=== PATIENT | male | born 1965 | race Caucasian/White ===

== ENCOUNTER → 2021-01-18 | Outpatient (CLI) | payer BC ==
[~2021-01-18] MED LIST: ADVIL COLD & S1 EACH PO; PANTOPRAZOLE SO40 MG PO; PEPCID AC10 MG PO
== END ==
LOC: RAD 15:40
PROVIDERS: ATTEND Internal Medicine Gastroenterology
DX: K59.09 Other constipation (principal)
CPT/HCPCS: 74018

== ENCOUNTER → 2021-02-03 | Day surgery (SDC) | payer BC ==
[~2021-02-03] MED LIST changes: +GLUCAGON FOR INJ 1 MG VIAL ONE; +LINZESS290 MCG PO; +LOSARTAN POTASS25 MG PO; +NP THYROID60 MG PO; +PROPOFOL IV EMULSION 10 MG/ML 20 ML VIAL ONE; +TYLENOL325 M2 PO
[2021-02-03 14:50] VITALS: BP 134/93
== END | disposition home or self-care (01) ==
LOC: OR 10:55 → MERGE 13:00
PROVIDERS: ATTEND Internal Medicine Gastroenterology
DX: K29.60 Other gastritis without bleeding (principal); Z86.010 Personal history of colon polyps; K31.7 Polyp of stomach and duodenum; K29.50 Unspecified chronic gastritis without bleeding; K20.90 Esophagitis, unspecified without bleeding; K44.9 Diaphragmatic hernia without obstruction or gangrene; K21.9 Gastro-esophageal reflux disease without esophagitis; K59.09 Other constipation; K31.89 Other diseases of stomach and duodenum; K57.30 Diverticulosis of large intestine without perforation or abscess without bleeding; K64.8 Other hemorrhoids; I10 Essential (primary) hypertension; R00.0 Tachycardia, unspecified; Z01.810 Encounter for preprocedural cardiovascular examination; Z01.812 Encounter for preprocedural laboratory examination; Z20.822 Contact with and (suspected) exposure to COVID-19; Z68.38 Body mass index [BMI] 38.0-38.9, adult
CPT/HCPCS: 43239; 45378; 93005; J1610; J2704; U0002

== ENCOUNTER → 2021-02-22 | Outpatient (CLI) | payer BC ==
[~2021-02-22] MED LIST changes: -GLUCAGON FOR INJ 1 MG VIAL ONE; -PROPOFOL IV EMULSION 10 MG/ML 20 ML VIAL ONE
== END ==
LOC: DX 07:03
PROVIDERS: ATTEND Internal Medicine Gastroenterology
DX: K59.09 Other constipation (principal); R11.0 Nausea; D50.8 Other iron deficiency anemias; Z20.822 Contact with and (suspected) exposure to COVID-19
CPT/HCPCS: 74250; U0002

== ENCOUNTER 2021-03-07 08:36 | Inpatient (IN) | payer BC ==
[~2021-03-07] VITALS: Ht 182.9 cm; Wt 88.5 kg
[2021-03-07] MEDS ORDERED: SODIUM CHLORIDE 0.9% 1000ML 1,000 ML IV SCH ×3 (09:00→10:15)
[2021-03-07] MEDS ORDERED: SODIUM CHLORIDE 0.9% 1000ML 1,000 ML ONE (09:19)
[2021-03-07 09:50] LABS: ANION GAP 11.7 mmol/L (8-16); CREATININE, SERUM 2.22 mg/dL (0.72-1.25); POTASSIUM 3.7 mmol/L (3.5-5.1)
[2021-03-07 09:54] LABS: CALCIUM 15.1 mg/dL (8.4-10.2)
[2021-03-07 10:16] LABS: BASOPHILS # (AUTO) 0.1 (0.0-0.1); BASOPHILS % 1.7 % (0.0-1.0); EOSINOPHILS # (AUTO) 0.2 (0.0-0.4); EOSINOPHILS % 4.2 % (0.0-6.0); HEMATOCRIT 32.3 % (38.2-49.6); HEMOGLOBIN 10.1 g/dL (14.0-18.0); LYMPHOCYTES # (AUTO) 0.3 (1.0-3.2); LYMPHOCYTES % 7.1 % (18.0-39.1); MEAN CORPUSCULAR HEMOGLOBIN 26.2 pg (28-32); MEAN CORPUSCULAR HGB CONC 31.3 g/dL (31-35); MEAN CORPUSCULAR VOLUME 83.9 fL (81-99); MONOCYTES # (AUTO) 0.9 (0.2-0.8); MONOCYTES % 18.4 % (4.4-11.3); NEUTROPHILS # (AUTO) 3.2 (2.1-6.9); NEUTROPHILS % 67.6 % (38.7-80.0); PLATELET COUNT 484 x10e3/uL (140-360); RED BLOOD COUNT 3.85 x10e6/uL (4.3-5.7); RED CELL DISTRIBUTION WIDTH 14.6 % (11.7-14.4)
[2021-03-07] MEDS ORDERED: ACETAMINOPHEN PO SCH (12:00)
[2021-03-07 12:10] VITALS: BP 172/100
[2021-03-07] MEDS ORDERED: INTEGRA PLUS C1 EACH PO (13:18)
[2021-03-07] MEDS ORDERED: FLONASE ALLERG9.9 ML INH (13:18)
[2021-03-07 13:22] LABS: FREE THYROXINE INDEX 2.4817 (1.4-3.8); THYROID STIMULATING HORMONE 1.276 uIU/mL (0.350-4.940)
[2021-03-07] MEDS ORDERED: PNEUMOCOCCAL VACCINE POLYVALENT 23 MCG/0.5 ML VIAL IM SCH (13:30)
[2021-03-07 14:48] VITALS: BP 135/78
[2021-03-07] MEDS: SODIUM CHLORIDE 0.9% 1000ML 1,000 ML IV SCH ×2 (15:04→20:52)
[2021-03-07 15:06] VITALS: BP 135/78
[2021-03-07 16:08] LABS: MAGNESIUM 1.7 MG/DL (1.3-2.1)
[2021-03-07 20:00] VITALS: BP 138/81
[2021-03-07] MEDS: FAMOTIDINE 20 MG TAB PO SCH (20:34)
[2021-03-07] MEDS: ACETAMINOPHEN 325 MG TAB PO PRN (20:52)
[2021-03-07 21:00] VITALS: BP 138/81
[2021-03-08] VITALS (8 sets, daily range): BP systolic 147–167; BP diastolic 83–97
[2021-03-08] MEDS: SODIUM CHLORIDE 0.9% 1000ML 1,000 ML IV SCH ×4 (03:13→23:06)
[2021-03-08 05:06] LABS: BASOPHILS # (AUTO) 0.1 (0.0-0.1); BASOPHILS % 1.5 % (0.0-1.0); EOSINOPHILS # (AUTO) 0.2 (0.0-0.4); EOSINOPHILS % 5.9 % (0.0-6.0); HEMATOCRIT 28.2 % (38.2-49.6); HEMOGLOBIN 8.8 g/dL (14.0-18.0); LYMPHOCYTES # (AUTO) 0.3 (1.0-3.2); LYMPHOCYTES % 8.4 % (18.0-39.1); MEAN CORPUSCULAR HEMOGLOBIN 26.3 pg (28-32); MEAN CORPUSCULAR HGB CONC 31.2 g/dL (31-35); MEAN CORPUSCULAR VOLUME 84.4 fL (81-99); MONOCYTES # (AUTO) 0.7 (0.2-0.8); MONOCYTES % 17.6 % (4.4-11.3); NEUTROPHILS # (AUTO) 2.6 (2.1-6.9); NEUTROPHILS % 65.3 % (38.7-80.0); PLATELET COUNT 315 x10e3/uL (140-360); RED BLOOD COUNT 3.34 x10e6/uL (4.3-5.7); RED CELL DISTRIBUTION WIDTH 14.7 % (11.7-14.4)
[2021-03-08 05:30] LABS: ALBUMIN 3.1 g/dL (3.5-5.0); ANION GAP 11.7 mmol/L (8-16); CALCIUM 12.8 mg/dL (8.4-10.2); CREATININE, SERUM 1.97 mg/dL (0.72-1.25); POTASSIUM 3.7 mmol/L (3.5-5.1)
[2021-03-08] MEDS: THYROID 60 MG TAB PO SCH ×2 (05:35→05:38)
[2021-03-08] MEDS: PANTOPRAZOLE SOD 40 MG TABEC PO SCH (08:23)
[2021-03-08] MEDS: FAMOTIDINE 20 MG TAB PO SCH ×2 (08:28→22:39)
[2021-03-08] MEDS ORDERED: LOSARTAN POTASSIUM 25 MG TAB PO SCH (09:00)
[2021-03-08 18:01] LABS: CLARITY,URINE CLEAR (CLEAR); COLOR,URINE YELLOW (YELLOW); KETONES,URINE NEGATIVE (NEGATIVE); LEUKOCYTE ESTERASE ,URINE NEGATIVE (NEGATIVE); NITRITE,URINE NEGATIVE (NEGATIVE); PROTEIN,URINE DIPSTICK NEGATIVE (NEGATIVE); URINE UROBILINOGEN 0.2 mg/dL (0.2 - 1)
[2021-03-08 18:19] LABS: TOTAL PROTEIN, URINE < 6.8 mg/dL (1-14)
[2021-03-09] VITALS (8 sets, daily range): BP systolic 143–169; BP diastolic 81–100
[2021-03-09 00:25] LABS: CLARITY,URINE CLEAR (CLEAR); COLOR,URINE YELLOW (YELLOW); KETONES,URINE NEGATIVE (NEGATIVE); LEUKOCYTE ESTERASE ,URINE NEGATIVE (NEGATIVE); NITRITE,URINE NEGATIVE (NEGATIVE); PROTEIN,URINE DIPSTICK NEGATIVE (NEGATIVE); URINE UROBILINOGEN 0.2 mg/dL (0.2 - 1)
[2021-03-09 00:31] LABS: BACTERIA,URINE FEW /HPF; EPITHELIAL CELLS,URINE RARE /LPF; WBC,URINE (MAN) 0-5 /HPF (0-5)
[2021-03-09 01:06] LABS: CREATININE,URINE RANDOM 63.67 mg/dL (63-166); TOTAL PROTEIN, URINE 7.3 mg/dL (1-14)
[2021-03-09] MEDS: SODIUM CHLORIDE 0.9% 1000ML 1,000 ML IV SCH ×3 (05:08→18:10)
[2021-03-09] MEDS: THYROID 60 MG TAB PO SCH (05:08)
[2021-03-09 05:48] LABS: TOTAL PROTEIN 24HR, URINE 176.79974 mg/24hr (50-100); TOTAL VOLUME, URINE 2600 ml/24hr (800-2000)
[2021-03-09 06:10] LABS: BASOPHILS # (AUTO) 0.1 (0.0-0.1); BASOPHILS % 1.4 % (0.0-1.0); EOSINOPHILS # (AUTO) 0.3 (0.0-0.4); EOSINOPHILS % 5.3 % (0.0-6.0); HEMATOCRIT 29.7 % (38.2-49.6); HEMOGLOBIN 9.5 g/dL (14.0-18.0); LYMPHOCYTES # (AUTO) 0.3 (1.0-3.2); LYMPHOCYTES % 4.9 % (18.0-39.1); MEAN CORPUSCULAR HEMOGLOBIN 26.6 pg (28-32); MEAN CORPUSCULAR VOLUME 83.2 fL (81-99); MONOCYTES # (AUTO) 0.6 (0.2-0.8); MONOCYTES % 12.6 % (4.4-11.3); NEUTROPHILS # (AUTO) 3.8 (2.1-6.9); NEUTROPHILS % 75.2 % (38.7-80.0); PLATELET COUNT 363 x10e3/uL (140-360); RED BLOOD COUNT 3.57 x10e6/uL (4.3-5.7); RED CELL DISTRIBUTION WIDTH 14.8 % (11.7-14.4)
[2021-03-09 07:06] LABS: ALBUMIN 3.2 g/dL (3.5-5.0); ALBUMIN/GLOBULIN RATIO 0.9 (0.8-2.0); ANION GAP 10.5 mmol/L (8-16); CREATININE, SERUM 2.06 mg/dL (0.72-1.25); POTASSIUM 3.5 mmol/L (3.5-5.1)
[2021-03-09 07:18] LABS: CALCIUM 13.2 mg/dL (8.4-10.2)
[2021-03-09] MEDS ORDERED: ALLOPURINOL 100 MG TAB PO SCH (09:00)
[2021-03-09] MEDS: PANTOPRAZOLE SOD 40 MG TABEC PO SCH (09:05)
[2021-03-09] MEDS: FAMOTIDINE 20 MG TAB PO SCH ×2 (09:05→20:41)
[2021-03-09] MEDS: ALLOPURINOL 300 MG TAB PO SCH (09:05)
[2021-03-09 11:17] LABS: INR 0.99; PROTHROMBIN TIME 13.5 seconds (11.9-14.5)
[2021-03-09] MEDS ORDERED: MIDAZOLAM HCL 2 MG/2 ML VIAL ONE (12:51)
[2021-03-09] MEDS ORDERED: FENTANYL CITRATE/PF 100MCG/2 ML INJ ONE (12:51)
[2021-03-09] MEDS ORDERED: PAMIDRONATE DISODIUM 90 MG in SODIUM CHLORIDE 0.9% 500ML 500 ML IV ONE (13:30)
[2021-03-09] MEDS ORDERED: LOSARTAN POTASSIUM 100 MG TAB PO ONE (19:00)
[2021-03-10] VITALS (9 sets, daily range): BP systolic 139–168; BP diastolic 78–100
[2021-03-10] MEDS: THYROID 60 MG TAB PO SCH (05:54)
[2021-03-10] MEDS: HYDRALAZINE HCL 20 MG/ML VIAL IV PRN ×2 (07:38→11:56)
[2021-03-10] MEDS ORDERED: PAMIDRONATE DISODIUM 90 MG in SODIUM CHLORIDE 0.9% 1000ML 1,000 ML IV ONE (08:45)
[2021-03-10 08:47] LABS: PROSTATE SPECIFIC AG TOTAL 0.6 ng/mL (0.0-4.0); PSA FREE 0.2 ng/mL
[2021-03-10] MEDS: ALLOPURINOL 300 MG TAB PO SCH (09:05)
[2021-03-10] MEDS: LOSARTAN POTASSIUM 100 MG TAB PO SCH (09:05)
[2021-03-10] MEDS: FAMOTIDINE 20 MG TAB PO SCH ×2 (09:05→20:50)
[2021-03-10] MEDS: PANTOPRAZOLE SOD 40 MG TABEC PO SCH (09:05)
[2021-03-10] MEDS: ACETAMINOPHEN 325 MG TAB PO PRN (12:11)
[2021-03-10] MEDS: AMLODIPINE BESYLATE 5 MG TAB PO SCH (13:09)
[2021-03-10] MEDS: DOCUSATE SODIUM 100 MG CAP PO SCH (17:52)
[2021-03-11] VITALS (7 sets, daily range): BP systolic 140–155; BP diastolic 84–93
[2021-03-11] MEDS: THYROID 60 MG TAB PO SCH (06:00)
[2021-03-11 06:30] LABS: ANION GAP 12.3 mmol/L (8-16); CALCIUM 11.8 mg/dL (8.4-10.2); CREATININE, SERUM 1.84 mg/dL (0.72-1.25); POTASSIUM 3.3 mmol/L (3.5-5.1)
[2021-03-11] MEDS: LOSARTAN POTASSIUM 100 MG TAB PO SCH (08:18)
[2021-03-11] MEDS: AMLODIPINE BESYLATE 5 MG TAB PO SCH (08:18)
[2021-03-11] MEDS: FAMOTIDINE 20 MG TAB PO SCH ×2 (08:18→20:54)
[2021-03-11] MEDS: DOCUSATE SODIUM 100 MG CAP PO SCH ×2 (08:18→16:46)
[2021-03-11] MEDS: PANTOPRAZOLE SOD 40 MG TABEC PO SCH (08:18)
[2021-03-11] MEDS: ALLOPURINOL 300 MG TAB PO SCH (08:18)
[2021-03-11] MEDS ORDERED: POTASSIUM CHLORIDE 20 MEQ TAB CR PO NR (11:46)
[2021-03-11] MEDS: CALCITONIN SALMON 400 IU/2ML VIAL SC SCH (17:16)
[2021-03-11] MEDS: SODIUM CHLORIDE 0.9% 1000ML 1,000 ML IV SCH (17:28)
[2021-03-11] MEDS ORDERED: METOPROLOL TARTRATE INJ 1 MG/ML VIAL IV PRN (22:15)
[2021-03-11] MEDS ORDERED: Morphine 2mg Syringe 2 MG/ML SYR IV PRN (22:15)
[2021-03-11] MEDS: ONDANSETRON HCL INJ 2MG/ML 2ML 2 MG/ML VIAL IV PRN (22:38)
[2021-03-12] VITALS (7 sets, daily range): BP systolic 129–149; BP diastolic 75–93
[2021-03-12] MEDS: SODIUM CHLORIDE 0.9% 1000ML 1,000 ML IV SCH ×4 (01:30→20:11)
[2021-03-12] MEDS: THYROID 60 MG TAB PO SCH ×2 (05:41→06:00)
[2021-03-12 06:35] LABS: ANION GAP 12.8 mmol/L (8-16); CALCIUM 10.3 mg/dL (8.4-10.2); CREATININE, SERUM 1.66 mg/dL (0.72-1.25); POTASSIUM 3.8 mmol/L (3.5-5.1)
[2021-03-12] MEDS: DOCUSATE SODIUM 100 MG CAP PO SCH ×2 (08:27→17:34)
[2021-03-12] MEDS: PANTOPRAZOLE SOD 40 MG TABEC PO SCH (08:28)
[2021-03-12] MEDS: LOSARTAN POTASSIUM 100 MG TAB PO SCH (08:28)
[2021-03-12] MEDS: FAMOTIDINE 20 MG TAB PO SCH ×2 (08:28→20:11)
[2021-03-12] MEDS: AMLODIPINE BESYLATE 5 MG TAB PO SCH (08:28)
[2021-03-12] MEDS: ALLOPURINOL 300 MG TAB PO SCH (08:29)
[2021-03-12] MEDS: CALCITONIN SALMON 400 IU/2ML VIAL SC SCH (09:38)
[2021-03-13] VITALS (8 sets, daily range): BP systolic 125–154; BP diastolic 80–92
[2021-03-13] MEDS: SODIUM CHLORIDE 0.9% 1000ML 1,000 ML IV SCH ×3 (04:07→21:35)
[2021-03-13] MEDS: THYROID 60 MG TAB PO SCH (04:07)
[2021-03-13] MEDS: FAMOTIDINE 20 MG TAB PO SCH ×2 (08:49→21:35)
[2021-03-13] MEDS: PANTOPRAZOLE SOD 40 MG TABEC PO SCH (08:49)
[2021-03-13] MEDS: AMLODIPINE BESYLATE 5 MG TAB PO SCH (08:49)
[2021-03-13] MEDS: DOCUSATE SODIUM 100 MG CAP PO SCH ×2 (08:49→17:01)
[2021-03-13] MEDS: ALLOPURINOL 300 MG TAB PO SCH (08:49)
[2021-03-13] MEDS: CALCITONIN SALMON 400 IU/2ML VIAL SC SCH ×2 (09:00→11:50)
[2021-03-13 11:59] LABS: ANION GAP 19.8 mmol/L (8-16); CALCIUM 9.9 mg/dL (8.4-10.2); CREATININE, SERUM 1.33 mg/dL (0.72-1.25); POTASSIUM 3.8 mmol/L (3.5-5.1)
[2021-03-14] VITALS: BP 134/82
[2021-03-14 04:00] VITALS: BP 135/79
[2021-03-14] MEDS: SODIUM CHLORIDE 0.9% 1000ML 1,000 ML IV SCH ×2 (04:20→06:46)
[2021-03-14] MEDS: THYROID 60 MG TAB PO SCH (05:28)
[2021-03-14 06:24] LABS: ALBUMIN 3.3 g/dL (3.5-5.0); ALBUMIN/GLOBULIN RATIO 1.1 (0.8-2.0); ANION GAP 17.6 mmol/L (8-16); CREATININE, SERUM 1.28 mg/dL (0.72-1.25); POTASSIUM 3.6 mmol/L (3.5-5.1)
[2021-03-14] MEDS: ONDANSETRON HCL INJ 2MG/ML 2ML 2 MG/ML VIAL IV PRN (06:46)
[2021-03-14 07:54] VITALS: BP 144/88
[2021-03-14] MEDS: ALLOPURINOL 300 MG TAB PO SCH (08:36)
[2021-03-14] MEDS: PANTOPRAZOLE SOD 40 MG TABEC PO SCH (08:36)
[2021-03-14] MEDS: AMLODIPINE BESYLATE 5 MG TAB PO SCH (08:36)
[2021-03-14] MEDS: DOCUSATE SODIUM 100 MG CAP PO SCH (08:36)
[2021-03-14] MEDS: FAMOTIDINE 20 MG TAB PO SCH (08:36)
[2021-03-14] MEDS: CALCITONIN SALMON 400 IU/2ML VIAL SC SCH (08:50)
[2021-03-14 09:31] VITALS: BP 144/88
[2021-03-14] MEDS ORDERED: PNEUMOCOCCAL VACCINE POLYVALENT 23 MCG/0.5 ML VIAL IM ONE (11:00)
[2021-03-14 11:12] VITALS: BP 155/94
[2021-03-14] MEDS ORDERED: SODIUM BICARBO650 MG PO (11:53)
== END 2021-03-14 12:20 | disposition home or self-care (01) | DRG 841 ==
LOC: ER 08:57 → ERHOLD 10:02 → MED/SURG 11:24 → OBSVTOIN 03-08 09:21
PROC: 0WBH3ZX Excision of Retroperitoneum, Percutaneous Approach, Diagnostic (ICD-10-PCS; principal; 2021-03-09)
DX: C85.96 Non-Hodgkin lymphoma, unspecified, intrapelvic lymph nodes (principal); N17.9 Acute kidney failure, unspecified; J90 Pleural effusion, not elsewhere classified; E44.0 Moderate protein-calorie malnutrition; E83.52 Hypercalcemia; I12.9 Hypertensive chronic kidney disease with stage 1 through stage 4 chronic kidney disease, or unspecified chronic kidney disease; N18.32 Chronic kidney disease, stage 3b; K21.9 Gastro-esophageal reflux disease without esophagitis; E78.5 Hyperlipidemia, unspecified; D64.9 Anemia, unspecified; E77.8 Other disorders of glycoprotein metabolism; E88.09 Other disorders of plasma-protein metabolism, not elsewhere classified; E79.0 Hyperuricemia without signs of inflammatory arthritis and tophaceous disease
CPT/HCPCS: 36415; 71046; 74176; 74470; 76770; 77012; 80048; 80053; 81001; 81050; 82105; 82232; 82310; 82507; 82570; 82948; 83615; 83735; 83945; 83970; 84100; 84153; 84156; 84436; 84443; 84479; 84550; 84702; 85025; 85610; 88112; 88305; 90732; 93005; 94640; 96361; 99284; G0378; J0360; J2250; J2405; J2430; J3010; J7030; J7040; U0002